=== PATIENT | female | born 1975 | race Caucasian/White ===

== ENCOUNTER 2019-05-22 03:31 | Emergency (ER) | payer BC ==
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
[2019-05-22] MEDS ORDERED: ALPRAZOLAM 0.25 MG TABLET PO ONE (03:50)
[2019-05-22] MEDS ORDERED: VENLAFAXINE ER 75 MG CAPSULE PO STA (03:56)
== END 2019-05-22 04:58 | disposition home or self-care (01) ==
LOC: ER 03:31
DX: F41.1 Generalized anxiety disorder (principal); F43.0 Acute stress reaction
CPT/HCPCS: 99283